=== PATIENT | female | born 1960 | race African-American/Black ===

== ENCOUNTER 2019-07-02 23:47 | Emergency (ER) | payer SELFPAY ==
[~2019-07-02] VITALS: Ht 162.6 cm; Wt 129.1 kg
[~2019-07-02 23:47] MED LIST: FURO-151
[2019-07-03] MEDS ORDERED: ASPIRIN 81MG TABLET PO ONE (00:30)
[2019-07-03 00:48] LABS: HEMATOCRIT. 40.7 % (36.0-48.0); HEMOGLOBIN. 13.5 g/dL (12.0-16.0); LYMPHOCYTES % 45.7 % (20.0-50.0); MEAN CORPUSCULAR HEMOGLOBIN 32.1 pg (28.0-32.0); MEAN CORPUSCULAR VOLUME 96.8 fL (81.0-99.0); MEAN PLATELET VOLUME 8.6 fl (7.4-10.4); MONOCYTES % 9.6 % (2.0-8.0); NEUTROPHILS % 42.7 % (40.0-76.0); PLATELET 133 x1000/uL (130-400); RED CELL DISTRIBUTION WIDTH 15.3 % (11.6-14.6)
[2019-07-03 00:51] LABS: CHLORIDE 107 mEq/L (98-107)
[2019-07-03 05:10] VITALS: BP 150/79
== END 2019-07-03 05:10 | disposition home or self-care (01) ==
LOC: ER 23:47
DX: R07.89 Other chest pain (principal); W18.39XA Other fall on same level, initial encounter; Y93.89 Activity, other specified; Y92.89 Other specified places as the place of occurrence of the external cause; Y99.8 Other external cause status; E11.9 Type 2 diabetes mellitus without complications; I10 Essential (primary) hypertension; Z98.890 Other specified postprocedural states
CPT/HCPCS: 36415; 71045; 80053; 83880; 84484; 85025; 93005; 99284; Z7610

== ENCOUNTER 2023-03-24 22:10 | Inpatient (IN) | payer BC ==
[~2023-03-24] VITALS: Ht 162.6 cm; Wt 97.1 kg
[2023-03-24 23:45] LABS: BASOPHILS % 0.7 % (0.0-2.0); EOSINOPHILS % 1.2 % (0.0-5.0); HEMATOCRIT. 42.3 % (36.0-48.0); HEMOGLOBIN. 13.7 g/dL (12.0-16.0); LYMPHOCYTES % 36.8 % (20.0-50.0); MEAN CORPUSCULAR HEMOGLOBIN 31.9 pg (28.0-32.0); MEAN PLATELET VOLUME 8.9 fl (7.4-10.4); MONOCYTES % 9.4 % (2.0-8.0); NEUTROPHILS % 51.9 % (40.0-76.0); PLATELET 123 x1000/uL (130-400); RED BLOOD CELL COUNT 4.31 mill/uL (4.2-5.4)
[2023-03-24] MEDS ORDERED: ASPIRIN 325MG EC TABLET PO ONE (23:45)
[2023-03-24 23:52] LABS: INR 1.1; PARTIAL THROMBOPLASTIN TIME 27.3 sec (23.4-31.0); PROTHROMBIN TIME 11.4 sec (9.6-11.0)
[2023-03-25] LABS: CHLORIDE 108 mEq/L (98-107)
[2023-03-25] MEDS ORDERED: ONDANSETRON HCL 4MG/2ML INJ IV PRN (02:45)
[2023-03-25] MEDS ORDERED: GUAIFENESIN 200MG/10ML SUGAR FREE UDC PO PRN (02:45)
[2023-03-25] MEDS ORDERED: IPRATROPIUM/ALBUTEROL 0.5-3(2.5)MG/3ML NEB HHN PRN (02:45)
[2023-03-25] MEDS ORDERED: CLONIDINE 0.1MG TABLET PO PRN (02:45)
[2023-03-25] MEDS ORDERED: MAGNESIUM/ALUMINUM HYDROXIDE/SIMETHICONE 30ML UDC PO PRN (02:45)
[2023-03-25] MEDS ORDERED: DOCUSATE SODIUM 100MG CAPSULE PO PRN (02:45)
[2023-03-25] MEDS ORDERED: ACETAMINOPHEN 325MG TABLET PO PRN (02:45)
[2023-03-25] MEDS ORDERED: DEXTROSE 50% WATER 50ML SYRINGE IV PRN (04:15)
[2023-03-25] MEDS: FUROSEMIDE 40MG/4ML VIAL IVP ONE ×2 (04:26→04:41)
[2023-03-25] MEDS: INSULIN LISPRO 100 UNITS/ML SUBCUT SCH ×4 (08:20→21:00)
[2023-03-25] MEDS: BLOOD SUGAR DIAGNOSTIC STRIP TEST SCH ×4 (08:58→21:00)
[2023-03-25 09:00] VITALS: BP 148/88; PULSE 52; RESP 18; TEMP 97.8
[2023-03-25] MEDS: FUROSEMIDE 40MG/4ML VIAL IV SCH (09:02)
[2023-03-25] MEDS: PANTOPRAZOLE SODIUM 40 MG/VIAL IV SCH (09:02)
[2023-03-25] MEDS: LOSARTAN POTASSIUM 100 MG TABLET PO SCH (09:03)
[2023-03-25] MEDS: AMLODIPINE 5MG TABLET PO SCH (09:03)
[2023-03-25] MEDS: CHLORTHALIDONE 25MG TABLET PO SCH (09:03)
[2023-03-25] MEDS: ENOXAPARIN 30MG/0.3ML SYR SUBCUT SCH ×2 (09:04→21:00)
[2023-03-25 09:12] VITALS: BP 148/88; PULSE 52; RESP 18; TEMP 97.8
[2023-03-25] MEDS ORDERED: MULT-1146 PO (09:54)
[2023-03-25] MEDS ORDERED: ERGO2000 (09:54)
[2023-03-25] MEDS ORDERED: FOLI0.4T6 PO (09:54)
[2023-03-25] MEDS ORDERED: AMLO5TAB88 PO (09:54)
[2023-03-25] MEDS ORDERED: LOSA100T33 PO (09:54)
[2023-03-25] MEDS ORDERED: CHLO25TA2 PO (09:54)
[2023-03-25] MEDS ORDERED: AZEL205. BOTHNSTRLS (09:54)
[2023-03-25] MEDS ORDERED: ALBU18HF2 IH (09:54)
[2023-03-25] MEDS ORDERED: FLUT1AER3 IH (09:54)
[2023-03-25 11:31] LABS: BASOPHILS % 0.8 % (0.0-2.0); EOSINOPHILS % 1.5 % (0.0-5.0); HEMATOCRIT. 44.4 % (36.0-48.0); HEMOGLOBIN. 14.6 g/dL (12.0-16.0); LYMPHOCYTES % 44.3 % (20.0-50.0); MEAN CORPUSCULAR HEMOGLOBIN 32.2 pg (28.0-32.0); MEAN CORPUSCULAR VOLUME 98.3 fL (81.0-99.0); MEAN PLATELET VOLUME 8.6 fl (7.4-10.4); MONOCYTES % 10.4 % (2.0-8.0); PLATELET 124 x1000/uL (130-400); RED BLOOD CELL COUNT 4.52 mill/uL (4.2-5.4); RED CELL DISTRIBUTION WIDTH 15.4 % (11.6-14.6)
[2023-03-25 11:35] LABS: BG BASE EXCESS 3.7 mmol/L (-2.0-2.0); BG CARBOXYHEMOGLOBIN 1.3 % (0.5-1.5); BG DEOXYHEMOGLOBIN 9.8 % (0.0-5.0); BG FRACTION INSPIRED OXYGEN 21; BG HCO3 ACT 29.9 mmol/L (22.0-26.0); BG METHEMOGLOBIN 0.3 % (0.0-1.5); BG OXYHEMOGLOBIN 88.6 % (94.0-97.0); BG PCO2 50.9 mmHg (35.0-45.0); BG PH 7.387 (7.350-7.450); BG SAMPLE SITE LEFT RADIAL; BG TOTAL HEMOGLOBIN 15.6 g/dL (12.0-18.0); BG VENT MODE ROOM AIR
[2023-03-25 11:45] LABS: CHLORIDE 105 mEq/L (98-107)
[2023-03-25 11:58] LABS: HDL CHOLESTEROL 114 mg/dL (40-59); LDL CHOLESTEROL 94 mg/dL (5-100)
[2023-03-25 12:00] VITALS: BP 115/68; PULSE 50; RESP 15; TEMP 98.4
[2023-03-25 16:00] VITALS: BP 119/45; PULSE 69; RESP 17; TEMP 98.9
[2023-03-25 17:44] LABS: CREATINE KINASE MB FRACTION 1.3 ng/mL (0.5-3.6)
[2023-03-25 20:00] VITALS: BP 135/69; PULSE 49; RESP 20; TEMP 98.2
[2023-03-25 23:23] VITALS: RESP 22
[2023-03-25] MEDS: IPRATROPIUM/ALBUTEROL 0.5-3(2.5)MG/3ML NEB HHN SCH (23:23)
[2023-03-26] VITALS (10 sets, daily range): BP systolic 125–147; BP diastolic 60–84; PULSE 47–84; RESP 18–25; TEMP 97–98.6; O2SAT 95
[2023-03-26 00:16] LABS: CREATINE KINASE MB FRACTION 1.5 ng/mL (0.5-3.6)
[2023-03-26] MEDS: BLOOD SUGAR DIAGNOSTIC STRIP TEST SCH (06:16)
[2023-03-26] MEDS: INSULIN LISPRO 100 UNITS/ML SUBCUT SCH (06:51)
[2023-03-26] MEDS: IPRATROPIUM/ALBUTEROL 0.5-3(2.5)MG/3ML NEB HHN SCH ×3 (08:55→23:52)
[2023-03-26 10:05] LABS: BASOPHILS % 0.3 % (0.0-2.0); HEMATOCRIT. 44.4 % (36.0-48.0); HEMOGLOBIN. 14.6 g/dL (12.0-16.0); LYMPHOCYTES % 47.2 % (20.0-50.0); MEAN CORPUSCULAR HEMOGLOBIN 32.2 pg (28.0-32.0); MEAN PLATELET VOLUME 9.2 fl (7.4-10.4); MONOCYTES % 8.6 % (2.0-8.0); NEUTROPHILS % 42.9 % (40.0-76.0); PLATELET 126 x1000/uL (130-400); RED BLOOD CELL COUNT 4.53 mill/uL (4.2-5.4); RED CELL DISTRIBUTION WIDTH 15.7 % (11.6-14.6)
[2023-03-26] MEDS: CHLORTHALIDONE 25MG TABLET PO SCH (10:15)
[2023-03-26] MEDS: FUROSEMIDE 40MG/4ML VIAL IV SCH (10:15)
[2023-03-26] MEDS: AMLODIPINE 5MG TABLET PO SCH (10:15)
[2023-03-26] MEDS: ENOXAPARIN 30MG/0.3ML SYR SUBCUT SCH ×2 (10:15→20:44)
[2023-03-26] MEDS: LOSARTAN POTASSIUM 100 MG TABLET PO SCH (10:15)
[2023-03-26] MEDS: PANTOPRAZOLE SODIUM 40 MG/VIAL IV SCH (10:15)
[2023-03-26 10:21] LABS: CHLORIDE 108 mEq/L (98-107)
[2023-03-26 10:31] LABS: CREATINE KINASE 98 IU/L (26-192); CREATINE KINASE MB FRACTION 1.1 ng/mL (0.5-3.6)
[2023-03-26] MEDS ORDERED: NITROGLYCERIN SPRAY/4.9GM CAN TL SCH (11:30)
[2023-03-26] MEDS ORDERED: IOHEXOL-350 100 ML BOTTLE ONE ×2 (11:37→12:45)
[2023-03-26 12:13] LABS: BG BASE EXCESS 6.3 mmol/L (-2.0-2.0); BG CARBOXYHEMOGLOBIN 0.9 % (0.5-1.5); BG DEOXYHEMOGLOBIN 8.1 % (0.0-5.0); BG HCO3 ACT 33.1 mmol/L (22.0-26.0); BG METHEMOGLOBIN 0.4 % (0.0-1.5); BG OXYGEN SATURATION 91.8 % (92.0-98.5); BG OXYHEMOGLOBIN 90.6 % (94.0-97.0); BG PCO2 55.7 mmHg (35.0-45.0); BG PH 7.392 (7.350-7.450); BG PO2 61.1 mmHg (75.0-100.0); BG SAMPLE SITE RIGHT BRACHIAL; BG TOTAL HEMOGLOBIN 15.6 g/dL (12.0-18.0); BG VENT MODE ROOM AIR
[2023-03-27] VITALS (10 sets, daily range): BP systolic 110–147; BP diastolic 57–79; PULSE 46–71; RESP 12–22; TEMP 97.4–98.1; O2SAT 94–97
[2023-03-27] MEDS ORDERED: FAMOTIDINE 20MG/2ML VIAL IV SCH (09:00)
[2023-03-27] MEDS: IPRATROPIUM/ALBUTEROL 0.5-3(2.5)MG/3ML NEB HHN SCH ×2 (09:38→16:11)
[2023-03-27] MEDS: ENOXAPARIN 30MG/0.3ML SYR SUBCUT SCH ×2 (12:36→21:10)
[2023-03-27] MEDS: AMLODIPINE 5MG TABLET PO SCH (12:37)
[2023-03-27] MEDS: CHLORTHALIDONE 25MG TABLET PO SCH (12:38)
[2023-03-27] MEDS: LOSARTAN POTASSIUM 100 MG TABLET PO SCH (12:38)
[2023-03-27] MEDS ORDERED: FAMOTIDINE 20MG TABLET PO SCH (21:00)
[2023-03-28] MEDS ORDERED: FUROSEMIDE 40MG TABLET PO SCH (09:00)
== END 2023-03-27 23:24 | disposition home or self-care (01) | DRG 189 ==
LOC: ER 22:10 → 8WST 03-25 02:12 → EDBEDREQ 03-25 02:16 → EDBEDREQTM 03-25 02:16 → SUPCPDRO 03-25 07:07
PROVIDERS: ADMIT Internal Medicine; ATTEND Internal Medicine
PROC: 5A09357 Assistance with Respiratory Ventilation, Less than 24 Consecutive Hours, Continuous Positive Airway Pressure (ICD-10-PCS; principal; 2023-03-25)
PROC: 5A09357 Assistance with Respiratory Ventilation, Less than 24 Consecutive Hours, Continuous Positive Airway Pressure (ICD-10-PCS; 2023-03-26)
DX: J96.21 Acute and chronic respiratory failure with hypoxia (principal); E44.1 Mild protein-calorie malnutrition; I25.110 Atherosclerotic heart disease of native coronary artery with unstable angina pectoris; E66.2 Morbid (severe) obesity with alveolar hypoventilation; J81.1 Chronic pulmonary edema; Z68.42 Body mass index [BMI] 45.0-49.9, adult; J96.22 Acute and chronic respiratory failure with hypercapnia; D69.6 Thrombocytopenia, unspecified; E11.9 Type 2 diabetes mellitus without complications; E87.8 Other disorders of electrolyte and fluid balance, not elsewhere classified; E78.00 Pure hypercholesterolemia, unspecified; I49.3 Ventricular premature depolarization; Z79.84 Long term (current) use of oral hypoglycemic drugs; Z98.84 Bariatric surgery status; Z79.899 Other long term (current) drug therapy; Z79.4 Long term (current) use of insulin; Z82.49 Family history of ischemic heart disease and other diseases of the circulatory system
CPT/HCPCS: 36415; 36600; 71045; 75571; 80048; 80053; 80061; 82375; 82550; 82553; 82805; 82962; 83036; 83880; 84439; 84443; 84484; 85025; 85379; 93005; 93306; 93970; 94640; 94660; 99285; C1893; C9113; J1650; J1940; J3490; Q9967